=== PATIENT | male | born 1950 | race Two or more races ===

== ENCOUNTER 2022-02-28 10:16 | Emergency (ER) | payer MEDICARE, OTHER ==
[~2022-02-28] VITALS: Ht 180.3 cm; Wt 81.0 kg
[2022-02-28] MEDS ORDERED: ONDANSETRON HCL 4MG/2ML INJ IV ONE (11:00)
[2022-02-28] MEDS ORDERED: SODIUM CHLORIDE 0.9% 1,000 ML IV ONE ×2 (11:00→20:00)
[2022-02-28] MEDS ORDERED: FAMOTIDINE 20MG/2ML VIAL IV ONE (11:00)
[2022-02-28 11:32] LABS: HEMATOCRIT. 26.5 % (42.0-52.0); HEMOGLOBIN. 8.8 g/dL (14.0-18.0); MEAN CORPUSCULAR HEMOGLOBIN 29.9 pg (28.0-32.0); MEAN CORPUSCULAR VOLUME 89.8 fL (80.0-94.0); MEAN PLATELET VOLUME 8.1 fl (7.4-10.4); PLATELET 310 x1000/uL (130-400); RED BLOOD CELL COUNT 2.96 mill/uL (4.7-6.1); RED CELL DISTRIBUTION WIDTH 13.5 % (11.6-14.6)
[2022-02-28 11:46] LABS: INR 1.1; PROTHROMBIN TIME 11.3 sec (9.6-11.0)
[2022-02-28 11:51] LABS: CHLORIDE 94 mEq/L (98-107)
[2022-02-28] MEDS ORDERED: POTASSIUM CHLORIDE 20MEQ TABLET SR PO NR (13:00)
[2022-02-28] MEDS ORDERED: ACETAMINOPHEN 325MG TABLET PO ONE ×2 (13:30→18:45)
[2022-02-28 14:09] LABS: PLATELET ESTIMATE NORMAL
[2022-02-28 14:44] LABS: CLARITY URINE CLOUDY (CLEAR); COLOR URINE YELLOW (YELLOW); KETONES URINE NEGATIVE (NEGATIVE); LEUKOCYTE ESTERASE URINE 2+ (NEGATIVE); NITRITE URINE NEGATIVE (NEGATIVE); OCCULT BLOOD URINE 2+ (NEGATIVE); PROTEIN URINE 3+ (NEGATIVE); SPECIFIC GRAVITY URINE 1.014 (1.005-1.030); UROBILINOGEN URINE 0.2 E.U./dL (0.2-1.0)
[2022-02-28] MEDS ORDERED: SODIUM CHLORIDE 0.9% 500 ML IV ONE (15:00)
[2022-02-28] MEDS ORDERED: METOPROLOL SUCCINATE 50MG ER TABLET PO STA (15:51)
[2022-02-28] MEDS ORDERED: DIPHENHYDRAMINE 50MG/ML VIAL IV ONE (16:00)
[2022-02-28] MEDS ORDERED: CEFTRIAXONE 1 G PREMIX 50 ML IV ONE (16:00)
[2022-02-28 18:31] VITALS: BP 160/101
[2022-02-28] MEDS ORDERED: IBUPROFEN 600MG TABLET PO ONE (20:00)
== END 2022-02-28 20:36 | disposition short-term general hospital (02) ==
LOC: ER 10:16
DX: A41.9 Sepsis, unspecified organism (principal); R65.20 Severe sepsis without septic shock; N39.0 Urinary tract infection, site not specified; Z20.822 Contact with and (suspected) exposure to COVID-19; I12.0 Hypertensive chronic kidney disease with stage 5 chronic kidney disease or end stage renal disease; E11.22 Type 2 diabetes mellitus with diabetic chronic kidney disease; R05.8 Other specified cough; R00.0 Tachycardia, unspecified; D64.9 Anemia, unspecified; N18.6 End stage renal disease; E11.65 Type 2 diabetes mellitus with hyperglycemia; J98.11 Atelectasis; Z18.10 Retained metal fragments, unspecified
CPT/HCPCS: 36415; 74176; 80053; 81003; 83605; 83690; 84484; 85025; 85610; 87040; 87077; 87086; 87186; 87426; 96361; 96365; 96375; 99291; C9803; J0696; J1200; J2405; J3490; J7030

== ENCOUNTER 2023-08-14 13:36 | Emergency (ER) | payer MEDICARE, OTHER ==
[~2023-08-14] VITALS: Ht 188 cm; Wt 91.0 kg
[2023-08-14 13:41] VITALS: TEMP 98; O2SAT 99
[2023-08-14 14:37] LABS: BASOPHILS % 0.9 % (0.0-2.0); EOSINOPHILS % 2.5 % (0.0-5.0); HEMOGLOBIN. 9.9 g/dL (14.0-18.0); LYMPHOCYTES % 16.4 % (20.0-50.0); MEAN CORPUSCULAR HEMOGLOBIN 29.3 pg (28.0-32.0); MEAN CORPUSCULAR VOLUME 88.7 fL (80.0-94.0); MEAN PLATELET VOLUME 8.1 fl (7.4-10.4); MONOCYTES % 8.9 % (2.0-8.0); NEUTROPHILS % 71.3 % (40.0-76.0); PLATELET 243 x1000/uL (130-400); RED BLOOD CELL COUNT 3.38 mill/uL (4.7-6.1); RED CELL DISTRIBUTION WIDTH 16.2 % (11.6-14.6)
[2023-08-14 14:41] LABS: POTASSIUM 4.2 mEq/L (3.5-5.1)
[2023-08-14 14:42] LABS: CALCIUM 8.5 mg/dL (8.7-10.4)
[2023-08-14 14:47] LABS: CREATININE 2.4 mg/dL (0.6-1.3)
[2023-08-14 17:45] VITALS: BP 160/90; PULSE 90; RESP 18
[2023-08-14] MEDS: ONDANSETRON 4MG ODT PO ONE (17:45)
[2023-08-14] MEDS: HYDROCODONE/ACETAMINOPHEN 5/325MG TABLET PO ONE (17:45)
[2023-08-14 18:54] LABS: CLARITY URINE CLEAR (CLEAR); COLOR URINE YELLOW (YELLOW); GLUCOSE URINE NEGATIVE (NEGATIVE); KETONES URINE NEGATIVE (NEGATIVE); LEUKOCYTE ESTERASE URINE NEGATIVE (NEGATIVE); NITRITE URINE NEGATIVE (NEGATIVE); OCCULT BLOOD URINE 2+ (NEGATIVE); PH URINE 5.5 (4.5-8.0); PROTEIN URINE 4+ (NEGATIVE); SPECIFIC GRAVITY URINE 1.017 (1.005-1.030); UROBILINOGEN URINE 0.2 E.U./dL (0.2-1.0)
[2023-08-14] MEDS ORDERED: IBUP-1523 MT (18:58)
[2023-08-14] MEDS ORDERED: TAMS-11 MT (18:58)
[2023-08-14] MEDS ORDERED: TOPUD MT (18:58)
[2023-08-14 19:22] LABS: BACTERIA URINE NONE SEEN; SQUAMOUS EPITHELIAL CELL URINE 1+ /lpf (RARE/1+); WBC URINE 0-2 /hpf (0-2)
== END 2023-08-14 19:48 | disposition home or self-care (01) ==
LOC: ER 13:43
DX: R10.13 Epigastric pain (principal); N28.9 Disorder of kidney and ureter, unspecified; N40.0 Benign prostatic hyperplasia without lower urinary tract symptoms; E11.9 Type 2 diabetes mellitus without complications; E78.00 Pure hypercholesterolemia, unspecified; I10 Essential (primary) hypertension; Z88.0 Allergy status to penicillin; Z98.890 Other specified postprocedural states
CPT/HCPCS: 99284; 74176; 80048; 81003; 85025; 36415; 93005; Q0162